=== PATIENT | male | born 1965 | race Caucasian/White ===

== ENCOUNTER 2017-12-08 06:05 | Inpatient (IN) | payer OTHER ==
[2017-12-08] MEDS ORDERED: CEFAZOLIN 2 GM in DEXTROSE 5%-WATER - 50 ML IVPB ONE (06:23)
[2017-12-08] MEDS ORDERED: TRANEXAMIC ACID 1000 MG/10 ML VIAL IVPUSH ONE (06:23)
[2017-12-08] MEDS ORDERED: oxyCODONE HCL 10 MG SUSTAINED ACTING TABLET PO ONE (06:23)
[2017-12-08] MEDS ORDERED: CELECOXIB 200 MG CAPSULE PO ONE (06:23)
[2017-12-08] MEDS ORDERED: GABAPENTIN 300 MG CAPSULE (FP) PO ONE (06:23)
[2017-12-08 07:00] VITALS: BMI 38.3
[2017-12-08] MEDS ORDERED: BUPIVACAINE LIPOSOME/PF (EXPAREL) 266 MG/20 ML VIAL ONE (07:01)
[2017-12-08] MEDS ORDERED: BUPIVACAINE HCL/PF 2.5 MG/ML - 30 ML VIAL IJ ONE (07:01)
[2017-12-08] MEDS ORDERED: MIDAZOLAM HCL 2 MG/2 ML SINGLE DOSE VIAL ONE ×2 (07:01→08:08)
[2017-12-08] MEDS ORDERED: ceFAZolin SODIUM 1 GM VIAL ONE ×2 (07:13→08:35)
[2017-12-08] MEDS ORDERED: VANCOMYCIN 1,000 MG VIAL (RESTRICTED TO ID ONLY) ONE ×2 (07:13→07:48)
--- NOTE | 2017-12-08 07:47 | HP ---
Satellite [facility] [place] - Chief Complaint Chief Complaint: left knee pain - Past Medical History Allergies/Adverse Reactions: Allergies Allergy/AdvReac Type Severity Reaction Status Date / Time Penicillins Allergy Verified 04/30/12 08:55 - Current Medications Current Medications: Home Medications Medication Instructions Recorded Amlodipine Besylate [Norvasc -] 5 mg PO DAILY 12/01/17 Hydrochlorothiazide [Hctz -] 25 mg PO DAILY 12/01/17 Lisinopril [Prinivil] 10 mg PO DAILY 12/01/17 Ferrous Sulfate [Iron] 325 mg PO DAILY 12/08/17 Naproxen 500 mg PO DAILY PRN 12/08/17 Satellite Physical Exam - Physical Examination Vital Signs: Vital Signs Period Temp Pulse Resp BP Sys/Soto Pulse Ox Last 24 Hr 99.3 F 94 18 176/98 General Appearance: Well Nourished, Well Developed, Alert & Oriented x3 ENT: Clear Lung: Normal air movement Heart: Regular rate & rhythm Extremities: Other (left knee- +Swelling, + ttp, decr rom, nvi xrays show grade 4 tricompartmental djd) Neurological: Intact, Alert, Oriented Satellite Impression/Plan - Impression/Plan Impression: left knee djd Operative Procedure: left meli tkr Date to be Performed: 12/08/17
[2017-12-08] MEDS ORDERED: PROPOFOL 20 ML ONE ×2 (08:06)
[2017-12-08] MEDS ORDERED: SUCCINYLCHOLINE CHLORIDE 200 MG/10 ML VIAL ONE ×2 (08:06→10:17)
[2017-12-08] MEDS ORDERED: fentaNYL CITRATE 250 MCG/5 ML VIAL ONE ×2 (08:21→08:43)
[2017-12-08] MEDS ORDERED: ROCURONIUM BROMIDE 50 MG/5 ML VIAL ONE ×2 (08:29→09:34)
[2017-12-08] MEDS ORDERED: DEXAMETHASONE SOD PHOSPHATE 4 MG/1 ML VIAL ONE (08:35)
[2017-12-08] MEDS ORDERED: LIDOCAINE HCL/PF 2% SDV 5ML VIAL ONE (08:35)
[2017-12-08] MEDS ORDERED: ONDANSETRON 4 MG/2 ML VIAL ONE ×2 (08:35→10:37)
[2017-12-08] MEDS ORDERED: LABETALOL HCL 5 MG/1 ML (100MG/20 ML VIAL) ONE (08:57)
[2017-12-08] MEDS ORDERED: SODIUM CHLORIDE 0.9% P/F 10 ML VIAL IJ ONE (09:09)
[2017-12-08] MEDS ORDERED: hydrALAZINE HCL 20 MG/ML VIAL ONE (09:09)
[2017-12-08] MEDS ORDERED: VANCOMYCIN 1,000 MG VIAL (RESTRICTED TO ID ONLY) IVPB ONE (09:43)
[2017-12-08] MEDS ORDERED: MAGNESIUM HYDROX 2400MG/30ML ORAL SUSPENSION 30 ML CUP PO PRN (10:21)
[2017-12-08] MEDS ORDERED: ONDANSETRON 4 MG/2 ML VIAL IVPUSH PRN ×2 (10:21→10:40)
[2017-12-08] MEDS ORDERED: MAG HYDROX/AL HYDROX/SIMETH 30 ML UNIT-DOSE CUP PO PRN (10:21)
--- NOTE | 2017-12-08 10:24 | OP ---
Operative Note - Note: Operative Date: 12/08/17 (latanya) Pre-Operative Diagnosis: left knee djd Operation: left meli tkr Post-Operative Diagnosis: Same as Pre-op Surgeon: Serafin Duff Lumber Tying Machine Operator: Panchito Carranza Anesthesiologist/GARMENT INSPECTOR: Jose Tee Anesthesia: General, Local Specimens Removed: bone fragments Estimated Blood Loss (mls): 200 Operative Report Dictated: Yes
[2017-12-08] MEDS ORDERED: LACTATED RINGERS SOLUTION 1,000 ML IV SCH (10:30)
[2017-12-08] MEDS ORDERED: PROMETHAZINE HCL 25 MG/1 ML VIAL IVPUSH PRN (10:40)
[2017-12-08] MEDS ORDERED: oxyCODONE HCL 5 MG TABLET PO PRN (10:40)
[2017-12-08] MEDS: oxyCODONE HCL 5 MG TABLET PO PRN ×2 (14:08→21:43)
[2017-12-08] MEDS: ACETAMINOPHEN 325 MG TABLET (FP) PO SCH ×2 (14:08→21:42)
[2017-12-08] MEDS ORDERED: REFRIGERATED ANITBIOTICS ONE (15:56)
[2017-12-08] MEDS: CEFAZOLIN 3 GM in DEXTROSE 5%-WATER - 100 ML IVPB SCH (16:01)
[2017-12-08] MEDS: SENNOSIDES/DOCUSATE COMBO (SENNA PLUS) TABLET (UD) PO SCH (21:44)
[2017-12-08] MEDS: oxyCODONE HCL 10 MG SUSTAINED ACTING TABLET PO SCH (21:44)
[2017-12-09] MEDS: ACETAMINOPHEN 325 MG TABLET (FP) PO SCH ×4 (04:29→19:58)
[2017-12-09] MEDS: oxyCODONE HCL 5 MG TABLET PO PRN ×2 (06:01→19:58)
--- NOTE | 2017-12-09 06:58 | OP ---
DATE OF OPERATION: 12/08/2017 PREOPERATIVE DIAGNOSIS: Degenerative joint disease, left knee. POSTOPERATIVE DIAGNOSIS: Degenerative joint disease, left knee. PROCEDURE: Left total knee replacement with robotic assisted navigation (MAKOplasty). SURGEON: Serafin Duff MD DOCUMENT PREPARATION SPECIALIST: STEPHIE Tipton ANESTHESIA: Regional and general (spinal was unsuccessful). CLOSURE: Cemented Triathlon knee system, with an A femur, 7 tibia, 11 PS polyethylene, 38 patella, No. 1 Vicryl fascia, 0 and 2-0 subcutaneous, 3-0 Monocryl with skin glue for skin, 4-0 undyed Vicryl for pin sites. ESTIMATED BLOOD LOSS: Approximately 100 mL. COMPLICATIONS: No complications. CONDITION: Sent to Recovery condition. DESCRIPTION OF PROCEDURE: The patient was taken to the operating room on December 08, 2017. Regional and general anesthesia was performed. Attempt at spinal failed, thus converting to general anesthesia. IV Kefzol and TXA were given prophylactically prior to the case. A well-padded pneumatic tourniquet was placed on the left proximal thigh. The left lower extremity was prepped and draped in the usual sterile fashion. A midline incision centered over the patella was incised. Hemostasis was achieved with Bovie. Sharp dissection was carried down to the level of the extensor mechanism, with sufficient flaps made to adequately perform the procedure. Medial parapatellar arthrotomy was then used. The patella was inverted and the knee was flexed up. A periosteal dissection was done on the anteromedial and proximal tibia until the knee was able to be brought forward. This was facilitated by taking the ACL, PCL and medial and lateral menisci. Checkpoints were malleted in both the femur and the tibia. Two parallel threaded pins were drilled obliquely from the medial femoral condyle and a navigational array was securely fastened to these pins. Two stab incisions were used over the inferomedial and proximal tibia one handbreadth below the tibial tubercle. These pins were also attached to tibial navigation device. The knee was then registered with navigation with the central rotation of the hip, medial and lateral malleoli and multiple points on both the femur and on the tibia. Excellent registration was confirmed by "popping the bubbles" were found to be within less than 0.5 mm. Osteophytes were removed circumferentially from around the knee. in medial and lateral directed stress. The virtual position of the components was then optimized to ensure equal gaps throughout. This was a significantly valgus knee. Some release, especially on the posterolateral corner was performed with large osteophytes here that needed to be removed. The popliteus also needed to help with balancing. Once the equal tension was obtained in both flexion and extension and varus/valgus stress, the robot was brought on the field. Robot was used to osteotomize the bone as per the specifications on the virtual model on both the femur and tibia. Trial components were then applied [id number] with an 11-mm insert and the patella was calipered for thickness and osteomized to the appropriate level, 38 mm trial was applied. Knee was taken through a range of motion and found excellent tracking of the patella, full extension, full flexion with excellent stability throughout. Trial components were removed. Keel was punched. The real components were then cemented using modern generation cement technique with antibiotic cement and pressurization. The knee was found to have a slight jog and due to the large size of this patient, it was decided to use a TS implant, which was put into place. Range of motion was excellent. The knee was pulse antibiotic irrigated. The knee was thoroughly inspected to remove any excess cement after the implantation with cement. During implantation, tourniquet was used. The leg was first exsanguinated with an Esmarch bandage and tourniquet inflated to 275 mmHg. After cement was hardened and the knee was thoroughly inspected, the tourniquet was deflated. Again, another gram of TXA was administered. The knee was thoroughly irrigated with antibiotic irrigation and dried. Vancomycin powder was placed in the arthrotomy and the arthrotomy was closed with No. 1 Vicryl interrupted suture. Knee was taken through a range of motion, found to have excellent tracking of the patella. No undue tension on the repair. The subcutaneous was closed in layers of 0 and 2-0 Vicryl, 3-0 Monocryl subcuticular with skin glue and 4-0 undyed Vicryl for pin sites. All checkpoints and pins were removed. Pressure dressing was applied with an Aquacel bandage. The patient was awakened from anesthesia and transferred to the recovery room in a stable condition. X-rays showed excellent position of the components. Jamie [id number]
[2017-12-09] MEDS: CEFAZOLIN 3 GM in DEXTROSE 5%-WATER - 100 ML IVPB SCH (07:15)
[2017-12-09] MEDS: ASPIRIN 325 MG TABLET PO SCH (07:39)
[2017-12-09 08:02] LABS: HEMATOCRIT 34.8 % (35.4-49); HEMOGLOBIN 12.2 GM/dl (11.7-16.9); MCH 29.9 pg (25.7-33.7); MCHC 35.1 g/dl (32.0-35.9); MEAN CELL VOLUME 85.3 fl (80-96); MEAN PLT VOLUME 8.5 fl (7.5-11.1); PLATELET COUNT 257 K/MM3 (134-434); RBC 4.07 M/mm3 (4.00-5.60); RDW 14.4 % (11.9-15.9); WHITE BLOOD COUNT 10.4 K/mm3 (4.0-10.8)
[2017-12-09] MEDS: PANTOPRAZOLE 40 MG TABLET (FP) PO SCH (09:12)
[2017-12-09] MEDS: HYDROCHLOROTHIAZIDE 25 MG TABLET (FP) PO SCH (09:12)
[2017-12-09] MEDS: FERROUS SO4 325 MG TABLET (FP) PO SCH (09:12)
[2017-12-09] MEDS: amLODIPine BESYLATE 5 MG TABLET (FP) PO SCH (09:12)
[2017-12-09] MEDS: MULTIVITAMINS (DAILY MVI) TABLET (FP) PO SCH (09:13)
[2017-12-09] MEDS: SENNOSIDES/DOCUSATE COMBO (SENNA PLUS) TABLET (UD) PO SCH ×2 (09:13→21:38)
[2017-12-09] MEDS: LISINOPRIL 10 MG TABLET (FP) PO SCH (09:13)
[2017-12-09] MEDS: oxyCODONE HCL 10 MG SUSTAINED ACTING TABLET PO SCH ×2 (09:13→21:38)
--- NOTE | 2017-12-09 09:52 | PN ---
Progress Note, Physician Chief Complaint: day #1 s/p left TKR - Current Medication List Current Medications: Active Medications Acetaminophen (Tylenol -) 650 mg PO Q6H [facility] Stop: 12/11/17 13:59 Last Admin: 12/09/17 07:39 Dose: 650 mg Al Hydroxide/Mg Hydroxide (Mylanta Oral Suspension -) 30 ml PO Q4H PRN PRN Reason: DYSPEPSIA Amlodipine Besylate (Norvasc -) 5 mg PO DAILY [facility] Last Admin: 12/09/17 09:12 Dose: 5 mg Aspirin (Asa -) 325 mg PO DAILY@0800 [facility] Last Admin: 12/09/17 07:39 Dose: 325 mg Fentanyl (Sublimaze Injection -) 50 mcg IVPUSH [id number] PRN PRN Reason: PAIN-PACU ORDER X 4 DOSES ONLY Last Admin: 12/08/17 11:15 Dose: 50 mcg Ferrous Sulfate (Feosol -) 325 mg PO DAILY [facility] Last Admin: 12/09/17 09:12 Dose: 325 mg Hydrochlorothiazide (Hctz -) 25 mg PO DAILY [facility] Last Admin: 12/09/17 09:12 Dose: 25 mg Cefazolin Sodium 3 gm/ (Dextrose) 100 mls @ 100 mls/hr IVPB Q8H-IV [facility] Stop: 12/09/17 12:59 Lisinopril (Prinivil) 10 mg PO DAILY [facility] Last Admin: 12/09/17 09:13 Dose: 10 mg Magnesium Hydroxide (Milk Of Magnesia -) 30 ml PO PRN PRN PRN Reason: CONSTIPATION Multivitamins/Minerals/Vitamin C (Tab-A-Vit -) 1 tab PO DAILY [facility] Last Admin: 12/09/17 09:13 Dose: 1 tab Ondansetron HCl (Zofran Injection) 4 mg IVPUSH Q6H PRN PRN Reason: NAUSEA Last Admin: 12/08/17 10:37 Dose: 4 mg Ondansetron HCl (Zofran Injection) 4 mg IVPUSH Q6H PRN PRN Reason: NAUSEA AND/OR VOMITING Oxycodone HCl (Roxicodone -) 5 mg PO Q3H PRN PRN Reason: PAIN LEVEL 1-5 Oxycodone HCl (Roxicodone -) 10 mg PO Q3H PRN PRN Reason: PAIN LEVEL 6-10 Last Admin: 12/09/17 06:01 Dose: 10 mg Oxycodone HCl (Oxycontin -) 10 mg PO BID [facility] Stop: 12/11/17 10:40 Last Admin: 12/09/17 09:13 Dose: 10 mg Pantoprazole Sodium (Protonix -) 40 mg PO DAILY [facility] Last Admin: 12/09/17 09:12 Dose: 40 mg Promethazine HCl (Phenergan Injection -) 12.5 mg IVPUSH Q6H PRN PRN Reason: NAUSEA-FOR RESCUE AFTER 15 MIN Senna/Docusate Sodium (Pericolace -) 2 tablet PO BID [facility] Last Admin: 12/09/17 09:13 Dose: 2 tablet - Objective Vital Signs: Vital Signs Temperature 99.2 F 12/09/17 09:09 Pulse Rate 87 12/09/17 09:09 Respiratory Rate 18 12/09/17 09:09 Blood Pressure 124/59 12/09/17 09:09 O2 Sat by Pulse Oximetry (%) 97 12/09/17 06:00 Labs: CBC, BMP 12/09/17 07:30 Assessment/Plan Pt resting comfortably, OOB to chair. Pain well controlled; awaiting PT
[2017-12-09] MEDS ORDERED: CEFAZOLIN 3 GM in DEXTROSE 5%-WATER - 100 ML IVPB SCH (12:00)
[2017-12-09] MEDS ORDERED: REFRIGERATED ANITBIOTICS ONE (12:01)
--- NOTE | 2017-12-09 12:22 | PN ---
Progress Note (short form) - Note Progress Note: Ortho Pt seen and examined s/p right meli tkr pod #1 Selected Entries 12/09/17 09:09 Temperature 99.2 F Pulse Rate 87 Respiratory 18 Rate Blood Pressure 124/59 Laboratory Tests 12/09/17 07:30 WBC 10.4 Hgb 12.2 Hct 34.8 L Plt Count 257 dressing c/d/i, calf soft, nt rom 0-50, nvi a/p PT dvt ppx pain control d/c home tomorrow if stable
[2017-12-10] MEDS: oxyCODONE HCL 5 MG TABLET PO PRN (00:07)
[2017-12-10] MEDS: ACETAMINOPHEN 325 MG TABLET (FP) PO SCH ×2 (01:26→08:39)
[2017-12-10 06:18] VITALS: BP 118/67; PULSE 94; TEMP 98.5
[2017-12-10 08:17] LABS: HEMATOCRIT 33.3 % (35.4-49); MCH 28.2 pg (25.7-33.7); MCHC 33.1 g/dl (32.0-35.9); MEAN CELL VOLUME 85.3 fl (80-96); MEAN PLT VOLUME 8.7 fl (7.5-11.1); PLATELET COUNT 230 K/MM3 (134-434); RBC 3.91 M/mm3 (4.00-5.60); RDW 14.5 % (11.9-15.9); WHITE BLOOD COUNT 11.1 K/mm3 (4.0-10.8)
--- NOTE | 2017-12-10 08:29 | DS ---
Physical Examination Vital Signs: Vital Signs Temperature 98.5 F 12/10/17 06:17 Pulse Rate 94 H 12/10/17 06:17 Respiratory Rate 20 12/10/17 06:17 Blood Pressure 118/67 12/10/17 06:17 O2 Sat by Pulse Oximetry (%) 95 12/10/17 06:16 Discharge Summary Reason For Visit: OSTEOARTHRITIS Procedures: Principal: s/p left meli tkr Hospital Course: admitted for elective left meli tkr, uneventful post-op, stable for d/c Condition: Good - Instructions Diet, Activity, Other Instructions: Post-op Instructions-Total Knee Replacement Call the office for a follow-up appointment in 1 week - [phone] Aspirin 325mg daily for 6 weeks. Pain medication was sent into your pharmacy. Apply Graduated Compression Stockings (TEDs) to both lower extremities- remove daily for hygiene ONLY Apply Sequential Compression Device (SCDs) to both Lower extremities remove for PT and hygiene ONLY Apply cold packs to affected area for 15 minutes every 2 hours. Physical Therapist will come to your home for the first 5 days. You will be set up with outpatient PT at your first post-operative visit. Patient may ambulate as tolerated-encourage self care (at least every 2-3 hours while awake) with walker or cane Maintain Aquacel (waterproof) dressing to operative wound (will be removed by surgeon at first office visit) Shower with Aquacel dressing in place-if Aquacel integrity compromised, remove and apply dry sterile dressing and notify Orthopedist. DO NOT SHOWER unless Orthopedists approves without Aquacel dressing CONTACT THE OFFICE FOR ANY CHANGE IN YOUR CONDITION (for example-fever greater than 102 degrees, excessive bleeding from operative site, purulent drainage, severe swelling or pain) GO TO THE EMERGENCY ROOM IF THERE IS A MEDICAL EMERGENCY Knee Precautions: * Keep a rolled towel under affected heel while in bed or chair (to keep knee in extension) * Keep affected leg elevated except during mealtimes * DO NOT PLACE PILLOW UNDER AFFECTED KNEE * If you have any questions, please do not hesitate to call the office - . Referrals: Serafin Duff MD [Staff Physician] - Disposition: [facility]NS/HOME HEALTH CARE - Home Medications Comprehensive Discharge Medication List: Ambulatory Orders Amlodipine Besylate [Norvasc -] 5 mg PO DAILY 12/01/17 Hydrochlorothiazide [Hctz -] 25 mg PO DAILY 12/01/17 Lisinopril [Prinivil] 10 mg PO DAILY 12/01/17 Aspirin [ASA -] 325 mg PO DAILY@0800 tablet 12/08/17 Ferrous Sulfate [Iron] 325 mg PO DAILY 12/08/17 Naproxen 500 mg PO DAILY PRN 12/08/17 Oxycodone HCl/Acetaminophen [Percocet 5-325 mg Tablet -] 1 - 2 tab PO Q6H #50 tab MDD 8 12/08/17
--- NOTE | 2017-12-10 08:29 | PN ---
Progress Note (short form) - Note Progress Note: Ortho Pt seen and examined s/p right meli tkr pod #2 Selected Entries 12/10/17 06:17 Temperature 98.5 F Pulse Rate 94 H Respiratory 20 Rate Blood Pressure 118/67 Laboratory Tests 12/10/17 07:45 WBC Pending Hgb Pending Hct Pending Plt Count Pending dressing c/d/i, calf soft, nt rom 0-50, nvi a/p PT dvt ppx pain control d/c home today f/u in 1 week
[2017-12-10] MEDS: ASPIRIN 325 MG TABLET PO SCH (08:39)
[2017-12-10] MEDS: FERROUS SO4 325 MG TABLET (FP) PO SCH (09:57)
[2017-12-10] MEDS: HYDROCHLOROTHIAZIDE 25 MG TABLET (FP) PO SCH (09:59)
[2017-12-10] MEDS: oxyCODONE HCL 10 MG SUSTAINED ACTING TABLET PO SCH (09:59)
[2017-12-10] MEDS: MULTIVITAMINS (DAILY MVI) TABLET (FP) PO SCH (09:59)
[2017-12-10] MEDS: amLODIPine BESYLATE 5 MG TABLET (FP) PO SCH (09:59)
[2017-12-10] MEDS: LISINOPRIL 10 MG TABLET (FP) PO SCH (10:00)
[2017-12-10] MEDS: SENNOSIDES/DOCUSATE COMBO (SENNA PLUS) TABLET (UD) PO SCH (10:00)
[2017-12-10] MEDS: PANTOPRAZOLE 40 MG TABLET (FP) PO SCH (10:00)
--- NOTE | 2017-12-10 16:51 | PATH ---
Surgical Pathology Report Patient Name: HUMBERTO WALSH Med. Rec. #: [id number] /Age/Gender: 1965 (Age: 52) / M Account: [id number] Location: [facility] MED-SURG Taken: 12/08/2017 Received: 12/08/2017 Reported: 12/10/2017 Physicians: Serafin Duff M.D. Specimen(s) Received LEFT KNEE BONES Clinical History Left knee osteoarthritis Final Diagnosis LEFT KNEE BONES, RESECTION: DEGENERATIVE JOINT DISEASE, LEFT KNEE. Electronically Signed Jenni Shirley M.D. Gross Description Received in formalin labeled "left knee bones," is a 12.5 x 11.0 x 2.6 cm aggregate of multiple portions of bone and soft tissue, consistent with knee bones. The articular surfaces are rooney-yellow and diffusely granular. No definite areas of eburnation are identified. The underlying trabecular bone is yellow and hard. Loan Specialist sections are submitted in one cassette, following decalcification. 12/09/2017 [facility]12/09/2017
== END 2017-12-10 13:00 | disposition home health service (06) | DRG 470 ==
LOC: FM/S 06:05
PROVIDERS: ADMIT Orthopaedic Surgery; ATTEND Orthopaedic Surgery
PROC: 8E0YXCZ Robotic Assisted Procedure of Lower Extremity (ICD-10-PCS; 2017-12-08)
PROC: 0SRC0J9 Replacement of Right Knee Joint with Synthetic Substitute, Cemented, Open Approach (ICD-10-PCS; principal; 2017-12-08 08:00)
DX: M16.12 Unilateral primary osteoarthritis, left hip (principal)
CPT/HCPCS: 36415; 73560-TC-LT-FY; 85027; 88304-TC; 88311-TC; 94760; 97116-GP; 97162-GP